=== PATIENT | male | born 1930 | race Two or more races ===

== ENCOUNTER 2019-08-31 07:48 | Emergency (ER) | payer OTHER ==
[~2019-08-31] VITALS: Ht 172.7 cm; Wt 78.9 kg
[2019-08-31] MEDS ORDERED: TAMS0.4C (07:59)
[2019-08-31] MEDS ORDERED: NEURONTIN600 M1 (07:59)
[2019-08-31] MEDS ORDERED: CARDIZEM30 MG (07:59)
[2019-08-31] MEDS ORDERED: MECLIZINE HCL25 MG (08:00)
== END 2019-08-31 14:15 | disposition home or self-care (01) ==
LOC: ER 07:48
DX: G57.02 Lesion of sciatic nerve, left lower limb (principal); M54.5 Low back pain; M25.552 Pain in left hip